=== PATIENT | female | born 1945 | race African-American/Black ===

== ENCOUNTER 2017-03-09 01:52 | Emergency (ER) | payer MEDICARE, BC ==
[2017-03-09 03:46] LABS: ABSOLUTE BASOPHILS # (AUTO) 0.1 10^3/uL (0.0-0.2); ABSOLUTE EOSINOPHILS # (AUTO) 0.2 10^3/uL (0.0-0.6); ABSOLUTE LYMPHOCYTES (AUTO) 1.8 10^3/uL (0.5-4.7); ABSOLUTE MONOCYTES (AUTO) 0.8 10^3/uL (0.1-1.4); ABSOLUTE NEUT (AUTO) 7.2 10^3/uL (1.7-8.2); BASOPHILS % (AUTO) 1.1 % (0-2); EOSINOPHILS % (AUTO) 1.6 % (0-6); HEMATOCRIT 36.7 % (36.0-47.0); HEMOGLOBIN 12.1 g/dL (12.0-15.5); HGB HCT DIFFERENCE -0.4; LYMPHOCYTES % (AUTO) 18.3 % (13-45); MEAN CORPUSCULAR HEMOGLOBIN 27.1 pg (27.0-33.4); MEAN CORPUSCULAR HGB CONC 33.1 g/dL (32.0-36.0); MEAN CORPUSCULAR VOLUME 82 fl (80-97); MONOCYTES % (AUTO) 7.8 % (3-13); RED BLOOD COUNT 4.49 10^6/uL (3.72-5.28); RED CELL DISTRIBUTION WIDTH 15.6 % (11.5-14.0); SEGMENTED NEUTROPHILS % (AUTO) 71.2 % (42-78); WHITE BLOOD COUNT 10.1 10^3/uL (4.0-10.5)
--- NOTE | 2017-03-09 03:46 | ER Document Report ---
ED Cardiac - General Chief Complaint: Chest Pain > 30 Stated Complaint: CHEST PAIN Mode of Arrival: Ambulatory Information source: Patient TRAVEL OUTSIDE OF THE [place] IN LAST 30 DAYS: No - HPI Notes: Patient denies complaints of chest pain. She states that while at [employer] [facility] around 10:30 last evening she had what felt like a charley horse just under her left breast. She states that she got up and walked around and this seemed to improve the pain. Around 1 AM she got a phone call and right after the phone call should the same thing occur where she had what she describes as a charley horse under her left breast. She states that she got up and moved around the seemed to make the pain better. She took some Tums as well. She denies any shortness of breath, diaphoresis, nausea, vomiting associated with that. She denies any chest pain currently. She denies any recent long trips or surgeries, no leg pain or swelling, no history of DVT or PE, no hormone use, no known cancer. She denies any known CAD, hypertension, hyper cholesterol, diabetes, smoking, drug use, family history of CAD at a young age. She states that she occasionally takes HCTZ for swelling in her legs, but this is not a daily medication for her. Currently the patient states she has no complaints at this time. - Related Data Allergies/Adverse Reactions: Penicillins Allergy (Intermediate, Verified 03/09/17 04:42) swelling fexofenadine HCl [From [facility]] Adverse Reaction (Intermediate, Verified 04:42) shaking Past Medical History - Social History Smoking Status: Unknown if Ever Smoked Family History: DM, Hypertension, Malignancy, Thyroid Disfunction Patient has suicidal ideation: No Patient has homicidal ideation: No - Past Medical History Cardiac Medical History: Denies: Hx Coronary Artery Disease, Hx Hypertension Endocrine Medical History: Reports: Hx Diabetes Mellitus Type 2 Renal/ Medical History: Denies: Hx Peritoneal Dialysis GI Medical History: Reports: Hx Colonoscopy, Hx Endoscopy Past Surgical History: Reports: Hx Dilation and Curettage, Hx Hysterectomy - Immunizations Immunizations up to date: No Hx Diphtheria, Pertussis, Tetanus Vaccination: No Review of Systems - Review of Systems -: Yes All other systems reviewed and negative Physical Exam - Vital signs Vitals: Temp Pulse Resp BP Pulse Ox 98.2 F 98 22 H 172/90 H 98 03/09/17 01:54 04/15/17 01:54 03/09/17 01:54 03/09/17 01:54 03/09/17 01:54 - Notes Notes: GENERAL: alert, cooperative, nontoxic, no distress. HEAD: normocephalic, atraumatic EYES: conjunctiva pink without discharge, no external redness or swelling. EARS: no external swelling, no external redness NOSE: atraumatic, no external swelling MOUTH/THROAT: mucous membranes moist and pink, posterior pharynx without erythema, swelling, exudate. No trismus or drooling. NECK: soft, supple, full range of motion, no meningismus. CHEST: no distress, lungs clear and equal throughout. No wheezing, rales, rhonchi. CARDIAC: regular rate and rhythm, no murmur, normal capillary refill, normal pulses. No peripheral edema noted. ABDOMEN: Soft, nontender. BACK: full range of motion, no CVA tenderness. EXTREMITIES: full range of motion of all extremities. No redness, no swelling. NEURO: alert and oriented 3, no focal deficits, full range of motion of all extremities. PYSCH: appropriate mood, affect. Patient is cooperative. SKIN: pink, warm, dry, no rash. Course - Re-evaluation Re-evalutation: 03/09/17 05:04 Patient resting comfortably at this time. She continues to have no chest pain. EKG shows no acute findings. Initial troponin is negative. D-dimer is mildly elevated, CT of the pulmonary arteries has been ordered. Repeat troponin and EKG have also been ordered. We will await the results of these tests. 03/09/17 05:56 Heart Score 3 points Low Score (0-3 points) Risk of MACE of 0.9-1.7%. 03/09/17 06:04 Repeat EKG shows a sinus rhythm with a ventricular rate of 77, inverted T waves in V2 with flattened T waves in V3 which is unchanged from prior EKG today as well as prior EKG and system. No obvious acute ischemic changes noted. 03/09/17 06:42 Patient remains nontoxic and chest pain-free at this time. Repeat EKG and troponin are negative. The patient has a hard score of 3 making her low risk. Her symptoms were very atypical for ACS and she has limited ACS risk factors. Patient has no PE risk factors, but her pain was somewhat sharp, therefore d- dimer was ordered. He was mildly elevated. CT of the pulmonary arteries was not a perfect test is bolused with slightly unkind, but there is no central PE. Low suspicion for PE in this patient She is noted to have nodules on the thyroid. I discussed this with the patient, she states that she is aware of this and has had 2 thyroid ultrasounds in the past. I instructed her to follow- up with her family doctor regarding this to determine if further evaluation is necessary. She was instructed to follow-up with her primary care doctor regarding the fact that she came to the emergency department for chest pain, as they may want to set up some outpatient testing for her. She is instructed to return to emergency department immediately if she develops chest pain with associated diaphoresis, shortness of breath or any further concerns. The patient is noted to have elevated blood pressure during today's emergency department visit. The patient was informed of this finding. The patient was instructed that this may be related to pre-hypertension and requires further evaluation with a primary care provider. The patient has no hypertensive symptoms at this time. The patient's emergency department workup and current diagnosis were explained to the patient and or family. Follow-up instructions were provided. Medications if prescribed were discussed. Instructions for when to return to the emergency department including specific worrisome symptoms were discussed with the patient and/or family. - Vital Signs Vital signs: Temp Pulse Resp BP Pulse Ox 98.2 F 98 18 167/95 H 98 03/09/17 01:54 03/09/17 01:54 03/09/17 03:21 03/09/17 03:21 03/09/17 03:34 - Laboratory Result Diagrams: 03/09/17 02:15 03/09/17 02:15 Laboratory results interpreted by me: 03/09/17 03/09/17 03/09/17 02:15 02:15 02:15 RDW 15.6 H D-Dimer 0.53 H BUN 23 H Est GFR (Non-Af Amer) 54 L Glucose 173 H - Diagnostic Test Radiology reviewed: Image reviewed, Reports reviewed - Chest x-ray unremarkable. CTA of the chest shows poor bolus with no central PE. Thyroid nodules. - EKG Interpretation by Or EKG shows normal: Sinus rhythm, Intervals, QRS Complexes Rate: Normal Additional EKG results interpreted by me: 03/09/17 03:50 Flattened T waves in V2, V3. This is unchanged from 01/22/2018 Discharge - Discharge Clinical Impression: Chest pain Qualifiers: Chest pain type: unspecified Qualified Code(s): R07.9 - Chest pain, unspecified Condition: Stable Disposition: HOME, SELF-CARE Instructions: Chest Pain of Unclear Cause ([facility]) Additional Instructions: Follow-up with her family doctor at the next available appointment. They may want to order outpatient testing due to your chest pain. Noted to have nodules on her thyroid, this needs to be further evaluated by ultrasound. This can be done with her primary care doctor as well. He should return to emergency department if you develop worsening chest pain, become short of breath, become sweaty, vomiting, or have any further concerns. Your blood pressure was elevated during today's visit. Have this rechecked with your doctor. Forms: Elevated Blood Pressure
[2017-03-09 03:51] LABS: ALANINE AMINOTRANSFERASE 30 U/L (9-52); ALBUMIN 3.9 g/dL (3.5-5.0); ALKALINE PHOSPHATASE 109 U/L (38-126); ANION GAP 13 (5-19); ASPARTATE AMINO TRANSFERASE 15 U/L (14-36); BILIRUBIN,DIRECT 0.3 mg/dL (0.0-0.4); BILIRUBIN,TOTAL 0.5 mg/dL (0.2-1.3); BLOOD UREA NITROGEN 23 mg/dL (7-20); CALCIUM 9.7 mg/dL (8.4-10.2); CARBON DIOXIDE 28 mmol/L (22-30); CHLORIDE 102 mmol/L (98-107); CREATINE KINASE 88 U/L (30-135); CREATININE RESULT 1.01 mg/dL (0.52-1.25); GLUCOSE 173 mg/dL (75-110); POTASSIUM 4.3 mmol/L (3.6-5.0); TOTAL PROTEIN 7.1 g/dL (6.3-8.2)
[2017-03-09 04:02] LABS: CREATINE KINASE MB 0.98 ng/mL (<4.55)
[2017-03-09 04:06] LABS: TROPONIN I < 0.012 ng/mL
[2017-03-09] MEDS ORDERED: ASPIRIN 325 MG TABLET PO ONE (05:04)
[2017-03-09 07:03] VITALS: BP 138/71
--- NOTE | 2017-03-09 10:09 | EKG REPORT ---
SEVERITY:- BORDERLINE ECG - SINUS RHYTHM VENTRICULAR PREMATURE COMPLEX BORDERLINE T ABNORMALITIES, ANTERIOR LEADS : Confirmed by: Ori Toth MD 09-Mar-2017 10:08:46
--- NOTE | 2017-03-09 10:09 | EKG REPORT ---
SEVERITY:- NORMAL ECG - SINUS RHYTHM : Confirmed by: Ori Toth MD 09-Mar-2017 10:08:31
== END 2017-03-09 07:09 | disposition home or self-care (01) ==
LOC: ER 01:52
DX: R07.9 Chest pain, unspecified (principal)
CPT/HCPCS: 93005 ×2; 99285; 36415; 82553; 82550; 85025; 80053; 84484; 85379; 83880; 71020; 71275; 93010; A9270